=== PATIENT | male | born 1990 | race Caucasian/White ===

== ENCOUNTER 2018-09-22 00:50 | Emergency (ER) | payer SELFPAY ==
[~2018-09-22] VITALS: Ht 182.9 cm; Wt 75.0 kg
[2018-09-22 01:13] VITALS: Ht 182.9 cm; Wt 75.0 kg
[2018-09-22] MEDS ORDERED: ANTI-INFLAMATORY (01:14)
[2018-09-22] MEDS ORDERED: STEROIDS (01:14)
[2018-09-22] MEDS ORDERED: MUSCLE RELAXER (01:14)
[2018-09-22] MEDS ORDERED: TORADOL10 MG PO (03:28)
[2018-09-22 03:48] VITALS: BP 132/79
== END 2018-09-22 03:48 | disposition home or self-care (01) ==
LOC: D.ER 00:50
DX: S29.012A Strain of muscle and tendon of back wall of thorax, initial encounter (principal); X50.0XXA Overexertion from strenuous movement or load, initial encounter; Y93.89 Activity, other specified; Y92.89 Other specified places as the place of occurrence of the external cause; F17.200 Nicotine dependence, unspecified, uncomplicated

== ENCOUNTER 2020-01-07 10:30 | Emergency (ER) | payer MEDICAID ==
[~2020-01-07] VITALS: Ht 182.9 cm; Wt 80.9 kg
[2020-01-07 10:34] VITALS: Ht 182.9 cm; Wt 80.9 kg
[2020-01-07 12:18] VITALS: BP 128/64
== END 2020-01-07 12:18 | disposition home or self-care (01) ==
LOC: D.ER 10:30
DX: G89.29 Other chronic pain (principal); M54.5 Low back pain; V89.2XXA Person injured in unspecified motor-vehicle accident, traffic, initial encounter; Y93.9 Activity, unspecified; Y92.9 Unspecified place or not applicable

== ENCOUNTER 2020-04-17 16:51 | Emergency (ER) | payer MEDICAID ==
[~2020-04-17] VITALS: Ht 182.9 cm; Wt 81.8 kg
[~2020-04-17 16:51] MED LIST: ANTI-INFLAMATORY; MUSCLE RELAXER; STEROIDS; TORADOL10 MG PO; VOLTAREN75 MG PO
[2020-04-17 17:16] VITALS: BP 119/76; Ht 182.9 cm; Wt 81.8 kg
[2020-04-17] MEDS ORDERED: ULTRAM50 MG PO (19:27)
[2020-04-17] MEDS ORDERED: CYCLOBENZAPRINE10 MG PO (19:27)
== END 2020-04-17 20:04 | disposition home or self-care (01) ==
LOC: D.ER 16:51
DX: S16.1XXA Strain of muscle, fascia and tendon at neck level, initial encounter (principal); S80.212A Abrasion, left knee, initial encounter; S39.012A Strain of muscle, fascia and tendon of lower back, initial encounter; E11.9 Type 2 diabetes mellitus without complications; M25.562 Pain in left knee; M25.561 Pain in right knee; R51 Headache; M54.2 Cervicalgia; X58.XXXA Exposure to other specified factors, initial encounter

== ENCOUNTER 2020-04-19 13:59 | Emergency (ER) | payer MEDICAID ==
[~2020-04-19 13:59] MED LIST changes: +CYCLOBENZAPRINE10 MG PO; +ULTRAM50 MG PO
[2020-04-19 14:08] VITALS: BP 126/76; Ht 182.9 cm
[2020-04-19] MEDS ORDERED: CLINDAMYCIN HC300 MG PO (16:03)
== END 2020-04-19 16:06 | disposition home or self-care (01) ==
LOC: D.ER 13:59
DX: B99.9 Unspecified infectious disease (principal); R51 Headache; M54.2 Cervicalgia; E11.9 Type 2 diabetes mellitus without complications; M54.5 Low back pain; S30.810A Abrasion of lower back and pelvis, initial encounter; V89.2XXA Person injured in unspecified motor-vehicle accident, traffic, initial encounter; Y93.9 Activity, unspecified; Y92.9 Unspecified place or not applicable

== ENCOUNTER 2020-04-20 18:20 | Emergency (ER) | payer MEDICAID ==
[~2020-04-20 18:20] MED LIST changes: +CLINDAMYCIN HC300 MG PO
[2020-04-20 18:28] VITALS: BP 122/74; Ht 182.9 cm
== END 2020-04-20 19:28 | disposition home or self-care (01) ==
LOC: D.ER 18:20
DX: S30.810A Abrasion of lower back and pelvis, initial encounter (principal); V89.2XXA Person injured in unspecified motor-vehicle accident, traffic, initial encounter; Y93.9 Activity, unspecified; Y92.9 Unspecified place or not applicable; Z91.14 Patient's other noncompliance with medication regimen; E11.9 Type 2 diabetes mellitus without complications